=== PATIENT | female | born 1985 | race African-American/Black ===

== ENCOUNTER → 2020-05-19 | Outpatient (REF) | payer OTHER | LOC: M WUC 17:48 | PROVIDERS: ATTEND Nurse Practitioner Family | DX: R30.0 Dysuria (principal) ==

== ENCOUNTER → 2020-08-07 | Outpatient (REF) | payer OTHER ==
[2020-08-07 18:34] LABS: URINE PREG TEST POSITIVE (NEGATIVE)
== END ==
LOC: M LAB REF 18:16
PROVIDERS: ATTEND Physician Assistant Medical
DX: Z32.00 Encounter for pregnancy test, result unknown (principal)

== ENCOUNTER 2020-10-21 14:03 | Emergency (ER) | payer OTHER ==
[~2020-10-21] VITALS: Ht 162.6 cm; Wt 84.2 kg
[2020-10-21] MEDS ORDERED: ZOFR4TAB16 PO (14:16)
[2020-10-21] MEDS ORDERED: COLA100C5 PO (14:16)
[2020-10-21] MEDS ORDERED: ASPI81CH33 PO (14:16)
[2020-10-21] MEDS ORDERED: PREN1TAB11 PO (14:16)
[2020-10-21] MEDS ORDERED: PROM50TA4 PO (14:16)
[2020-10-21] MEDS ORDERED: FOLI400T PO (14:16)
[2020-10-21] MEDS ORDERED: LOVE1INJ SC (14:16)
[2020-10-21] MEDS ORDERED: PYRI100L PO (14:16)
--- OUTSIDE RECORDS SUMMARY | 2020-10-21 15:12 | CCD ---
Author Author [facility] Organization [facility] Address Unknown Phone Unavailable Care Team Providers Care Assistant Portfolio Manager Name Role Phone FRANDY HANNAH Unavailable Unavailable MASTROGIANNISMiller LEON Unavailable Unavailable Reyes, Shayna YARD ASSOCIATE Unavailable Unavailable Reyes, Shayna YARD ASSOCIATE Unavailable Unavailable Reyes, Shayna YARD ASSOCIATE Unavailable Unavailable Reyes, Shayna YARD ASSOCIATE Unavailable Unavailable Reyes, Shayna YARD ASSOCIATE Unavailable Unavailable Reyes, Shayna YARD ASSOCIATE Unavailable Unavailable Reyes, Shayna YARD ASSOCIATE Unavailable Unavailable Reyes, Shayna YARD ASSOCIATE Unavailable Unavailable Reyes, Shayna YARD ASSOCIATE Unavailable Unavailable Reyes, Shayna YARD ASSOCIATE Unavailable Unavailable Reyes, Shayna YARD ASSOCIATE Unavailable Unavailable JAZMIN ESCOBEDO Unavailable Unavailable MINDA GARCIA Unavailable Unavailable Re-disclosure Warning The records that you are about to access may contain information from federally-assisted alcohol or drug abuse programs. If such information is present, then the following federally mandated warning applies: This information has been disclosed to you from records protected by federal confidentiality rules (42 CFR part 2). The federal rules prohibit you from making any further disclosure of this information unless further disclosure is expressly permitted by the written consent of the person to whom it pertains or as otherwise permitted by 42 CFR part 2. A general authorization for the release of medical or other information is NOT sufficient for this purpose. The Federal rules restrict any use of the information to criminally investigate or prosecute any alcohol or drug abuse patient.The records that you are about to access may contain highly sensitive health information, the redisclosure of which is protected by Article 27-F of the [place] State Public Health law. If you continue you may have access to information: Regarding HIV / AIDS; Provided by facilities licensed or operated by the [facility] Office of Mental Health; or Provided by the [facility] Office for People With Developmental Disabilities. If such information is present, then the following [facility] mandated warning applies: This information has been disclosed to you from confidential records which are protected by state law. State law prohibits you from making any further disclosure of this information without the specific written consent of the person to whom it pertains, or as otherwise permitted by law. Any unauthorized further disclosure in violation of state law may result in a fine or senior living sentence or both. A general authorization for the release of medical or other information is NOT sufficient authorization for further disc losure. 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 Outpatient Attender: HANNAH WISEReferrer: DUNCAN GARCIA [id number] 09/27/2020 12:00:00 AM [facility] Outpatient Attender: JAZMIN ESCOBEDOReferrer: DUNCAN GARCIA 09/27/2020 12:00:00 AM [facility] Outpatient Attender: Shayna victor 05/19/2020 04:35:00 PM EDT [facility] Medications Medication Brand Name Start Date Product Form Dose Route Admi nistrative Instructions Pharmacy Instructions Status Indications Reaction Description Data Source(s) Cefixime 400 MG Oral Capsule CEFIXIME 05/19/2020 12:00:00 AM EDT caps ule 1 TAKE 1 CAPSULE BY MOUTH FOR 1 DOSE TAKE 1 CAPSULE BY MOUTH FOR 1 DOSE SOLD: 05/19/2020 [facility] Cefixime 400 MG Oral Capsule [Suprax] Suprax 05/19/2020 12:00:00 AM EDT ORAL completed [facility] ([facility]) Azithromycin 16.7 MG/ML Oral Suspension Azithromycin 05/19/20 20 12:00:00 AM EDT ORAL completed [facility] ([facility]) 500 mg 05/19/2020 12:00:00 AM EDT tablet 2 TAKE 2 TABLETS BY MOUTH NOW TAKE 2 TABLETS BY MOUTH NOW SOLD: 05/19/2020 [facility] Metronidazole 500 MG Oral Tablet Metronidazole 05/19/2020 12:00:00 AM EDT active [facility] ([facility]) Metronidazole 500 MG Oral Tablet METRONIDAZOLE 05/19/2020 12:0 0:00 AM EDT tablet 14 TAKE ONE TABLET BY MOUTH TWICE A DAY FOR 7 DAYS TAKE ONE TABLET BY MOUTH TWICE A DAY FOR 7 DAYS SOLD: 05/19/2020 [employer] Insurance Providers Payer name Policy type / Coverage type Policy ID Covered green party ID Covered green party's relationship to troncoso Policy Tron[place]o Plan Information [facility] [employer] [id number] U [id number] Self [id number] [facility] REG O [id number] P [id number] [facility] UKN HU2 UKN Problems, Conditions, and Diagnoses Code Display Name Description Problem Type Effective Dates Data Source(s) 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 Diagnosis 09/28 09:19:31 AM [facility] D68.61 Antiphospholipid syndrome Antiphospholipid syndrome Di agnosis 09/27/2020 09:49:50 AM [facility] D68.59 Other primary thrombophilia Other primary thrombophili a Diagnosis 09/27/2020 09:49:50 AM [facility] O99.111 Other diseases of the blood and blood-forming organs and certain disorders involving the immune mechanism complicating , first trimester Other diseases of the blood and blood-fo rming organs and certain disorders involving the immune mechanism complicating , first trimester Diagnosis 09/27/2020 09:49:50 AM [facility] Z31.5 Encounter for procreative genetic counsstephen freeman Encounter for procreative genetic counseling Diagnosis 09/27/2020 09:49:50 AM [facility] O09.521 Supervision of elderly multigravida, fir st trimester Supervision of elderly multigravida, first trimester Diagnosis 09/27/2020 09:49:50 AM [facility] Results ID Date Data Source [id number] 10/10/2020 06:08:37 PM [facility] Name Value Range Interpretation Code Description Data Evelyn rce(s) Supporting Document(s) Progress Note [facility] EHCXRz3tRuSNTyTm04/IAVkrBUIji6BaAGyhKVb7TPolIXYtU5SdYAJ8mM4tJQL9VGqYWtFcRiJlRWB7 lbm [file] BXu8XWD3VS5OWOVXP8MOEy== ID Date Data Source [id number] 10/10/2020 06:08:32 PM [facility] Name Value Range Interpretation Code Description Data Evelyn rce(s) Supporting Document(s) Progress Note [facility] YNJCFv0nLkXETdQw65/WQAbgRAFxe1RrLUfmCTm1XRvmZTJfI1UfLWE1zD9dQQY0DXeEZyIhJcDuLEA8 lbm [file] ICAgICAgICAgICAgICAgICAgICAgICAgICAgICAgIC AgICAgICAgICAgICAgICAgICAgICAgICAgICAgICAgICAgICAgICAgICAgICAgICAgDQogICAgICAgIC AgICAgICAgICAgICAgICAgICAgICAgICAgICAgICAgICAgICAgICAgICAgICAgICAgICAgICAgICAgIC AgICAgICAgICAgICAgICAgICAgICAgICAgICAgICAg DQogICAgICAgICAgICAgICAgICAgICAgICAgICAgICAgICAgICAgICAgICAgICAgICAgICAgICAgICAg ICAgICAgICAgICAgICAgICAgICAgICAgICAgICAgICAgICAgICAgICAgDQogICAgICAgICAgICAgICAg ICAgICAgICAgICAgICAgICAgICAgICAgICAgICAgIC AgICAgICAgICAgICAgICAgICAgICAgICAgICAgICAgICAgICAgICAgICAgICAgICAgICAgDQogICAgIC AgICAgICAgICAgICAgICAgICAgICAgICAgICAgICAgICAgICAgICAgICAgICAgICAgICAgICAgICAgIC AgICAgICAgICAgICAgICAgICAgICAgICAgICAgICAg ICAgDQogICAgICAgICAgICAgICAgICAgICAgICAgICAgICAgICAgICAgICAgICAgICAgICAgICAgICAg ICAgICAgICAgICAgICAgICAgICAgICAgICAgICAgICAgICAgICAgICAgICAgDQogICAgICAgICAgICAg ICAgICAgICAgICAgICAgICAgICAgICAgICAgICAgIC AgICAgICAgICAgICAgICAgICAgICAgICAgICAgICAgICAgICAgICAgICAgICAgICAgICAgICAgDQogIC AgICAgICAgICAgICAgICAgICAgICAgICAgICAgICAgICAgICAgICAgICAgICAgICAgICAgICAgICAgIC AgICAgICAgICAgICAgICAgICAgICAgICAgICAgICAg ICAgICAgDQogICAgICAgICAgICAgICAgICAgICAgICAgICAgICAgICAgICAgICAgICAgICAgICAgICAg ICAgICAgICAgICAgICAgICAgICAgICAgICAgICAgICAgICAgICAgICAgICAgICAgDQogICAgICAgICAg ICAgICAgICAgICAgICAgICAgICAgICAgICAgICAgIC AgICAgICAgICAgICAgICAgICAgICAgICAgICAgICAgICAgICAgICAgICAgICAgICAgICAgICAgICAgDQ a2R9oqSPBlHJUxRA4sEKl3Sk8+AIoGSdBoZJT0aaEnkY7YBX9rr7JnRWvhYQUcb1GwDEe7AA6HZZVoOD sdBL6WKXsmds9FNFTeBXUpdCOQp1buHyGnKUH9CPEl UiavVD2SBQLtL5ezcdJlRBHsCUKBTPxmZSNIWRbsTCTUAF2CLnIjW7KyxH65NBIDDs0+DQplbmRvYmoN PkJ2RHWpf8YoSCm4HF2SKZWtCcseu4ObYixpBDJKMWewOP9QTXP2ZGC0HVTrWc2IFFFcG704rkXyWE9B Dq8CEsXbWK0byj3WMjvyEZXnHtwUBvv7QUwkYY9RhO PqRTcJfb3xewTontNNb2ZzdnYeaKSOyG3ck0N4HCj0okL9xYA3SYZ5PSIhKG8nZLJmWJPfAlJxNITJZR 1DNHBkWMQwbOXuHHKmXGOOSN5RGLjrXDN8EKUeciTczKKuFImrPU6LYYXlpgIfOiGyDDXCMUm+Pg0KZW 8yx4TfJUkpREOfCV7xrn0MPQxQDhIbX1S8nFQyQ8E4 DAhuXc1NXDZqKDHxUqFoMKNJOUdnSQ8VWG0pnrX7HY1HpAJnSOQwBMLqgEMrSKc2Z38ocEGrPYghVT0Q ICA+Denton+Kg7VGFKhIFNgWRFfNeSgTMCOSxSqD7EzJ0DFo6SqE0YdQZ03aYlqmsFySDmbIU9DQR6zKFZw DDEJJD2DbZVeqG3nauHdFcSmAHTRNgOwI20rlBLfWA RiVIZ7ZRHlUw8OVPUnL2AbipTtaPoujrRmPCPfRNQRJI5YIFbzbyYepMYjjKmvOH12qNvpEW2YNc7ALi JyGH1uaj2CeDScFr6WALFmPG9NXRIcSOXvORJuAMX9SUVbFpVwLXntWFDxRKZjSHT7MEJmYABrZO2STt MlDZDvSix6GnfiVBMuVTGvfq6PLXZlZIAzSUM1UrDj IKVqYJNtWJjuCHBnADUoKLF1IXVdMLQtPL2UTwFvJRWgTYN5AzUmFNQqQOQnry7IYUPkQYKzKFj7DbHo ACHtBVNqEBhiIJBnCMP3LdEfKOBlVNWpGK6WMkGxZBDmFEd4PbStEUVmXPQbuv3AWKAnHIKbGgJoVkSa SDLqLZKqEPsjKEAlCSFlXUVkYBZoPNXeVC2JAfKaBX EiWHX1YYMuLZFaPYQwkt4PKWXhPNHyYXN6SFBbNTCvNSMyFCseLZOrGJC8DxlcCLBxYLLnQR0CQbMuHR VgSYW9YFDaWYMbSDUwpx7IUMRvJNBsCKa3QzHmSSUkVCJrKItuBGXaFMQ5MSUjLSXjPQVySK8SYfYgKE QsUxf1JKDjIBFhNNDhjy3CGXZiGXQoQuokCZDcPTPs QGJaWRtzYCVjAMN6EHHnPWDrCNCeDU1VWqZjSQUwBbofCIIrFKNySMPpuu6CQDDzRLYtQKB3HdJqKUMd QKMsTAgiATYyEJL6UeShHIToZRPqTC4SCaVjTPWjAbe6VicaWGJdOCVvfa4SVXAhGYNjPXtnMxJkCZXi RJQtRWixFFQsXFXbPMLbLQHhHZNpTR6JOjGhXETuDz V4PrGiROYtIQWoeb6UNFKvKHVvPYH5VUUhZEJbZHYvEYgtHIBvGFTsYxikBFUbGLUfPL4XYvAvMYkbAX NIWgy0OUghD7w3TQBkKF8XS7Cnw3QgJelhQNNQMSvkWN2oczFlPYFxEy7KH2pQOjj1MeKyUDB5EVTfUI S2Ybm4XDQ9CPApNLT1TDS6ZnFfUF7zHQWuGuWxAJGz WVKuQQtuGaRnVMgfIlYlEsbnUpg0WKA0GzTsHD2ZZw3CWmU8EHL8uMHkOr3UNaHwSwFXZrAbTC0RMZt= ID Date Data Source [id number] 09/29/2020 07:59:57 AM [facility] Name Value Range Interpretation Code Description Data Evelyn rce(s) Supporting Document(s) Progress Note [facility] HZOKFv5eHeCBHvNy88/UWCviPYVsw2OzFNjzHVc6QYujVRCjG2XrONS4jS8xITG8NRfNOkVnQvPmUUP1 lbm [file] K2YTV0rWTvTo6NWLwlXHaMFzKrQD5FZVd= ID Date Data Source [id number] 09/27/2020 02:03:28 PM [facility] Name Value Range Interpretation Code Description Data Evelyn rce(s) Supporting Document(s) Leukocytes [#/volume] in Blood by Automated count 6.9 10*3/uL 4-10 [facility] Erythrocytes [#/volume] in Blood by Automated count 4.12 10*6/uL 4.1- 5.3 [facility] Hemoglobin [Mass/volume] in Blood 11.8 g/dL 11.5-15.5 [facility] Hematocrit [Volume Fraction] of Blood by Automated count 36.1 % 3 6-45 [facility] Erythrocyte mean corpuscular volume [Entitic volume] by Auto mated count 87.6 fL 80-96 [facility] Erythrocyte mean corpuscular hemoglobin [Entitic mass] by Automated count 28.6 pg 27-33 [facility] Erythrocyte mean corpuscular hemoglobin concentration [Mass/volume] by Automated count 32.7 g/dL 32.0-36.0 [facility] Erythrocyte distribution width [Ratio] by Automated count 13.6 % 11.5-14.5 [facility] Platelets [#/volume] in Blood by Automated count 225 10*3/uL 150-400 [facility] Differential cell count method - Blood [facility] Neutrophils/100 leukocytes in Blood by Automated count 60 % [facility] Lymphocytes/100 leukocytes in Blood by Automated count 28 % [facility] Monocytes/100 leukocytes in Blood by Automated count 9 % [facility] Eosinophils/100 leukocytes in Blood by Automated count 2 % [facility] Basophils/100 leukocytes in Blood by Automated count 1 % [facility] Neutrophils [#/volume] in Blood by Automated count 4.19 10*3/uL 1.8-[address] [facility] Lymphocytes [#/volume] in Blood by Automated count 1.89 10*3/uL 1.2-[address] [facility] Monocytes [#/volume] in Blood by Automated count 0.62 10*3/uL 0-0.8 [facility] Eosinophils [#/volume] in Blood by Automated count 0.12 10*3/uL 0-0.5 [facility] Basophils [#/volume] in Blood by Automated count 0.04 10*3/uL 0-0.2 [facility] Nucleated erythrocytes/100 leukocytes [Ratio] in Blood by Automated count 0 /100{WBCs} 0-0 [facility] ID Date Data Source [id number] 09/27/2020 02:16:49 PM [facility] Value Range Interpretation Code Description Data Evelyn rce(s) Supporting Document(s) aPTT in Platelet poor plasma by Coagulation assay 28.1 s 24.0-33. 0 [facility] ID Date Data Source [id number] 09/27/2020 02:18:06 PM [facility] Value Range Interpretation Code Description Data Evelyn rce(s) Supporting Document(s) Erythrocyte sedimentation rate 34 mm/hr <[address] [facility] ID Date Data Source [id number] 09/27/2020 02:31:49 PM [facility] Value Range Interpretation Code Description Data Evelyn rce(s) Supporting Document(s) Complement C3 [Mass/volume] in Serum or Plasma 112 mg/dL 90-180 [facility] ID Date Data Source [id number] 09/27/2020 02:31:49 PM [facility] Value Range Interpretation Code Description Data Evelyn rce(s) Supporting Document(s) Complement C4 [Mass/volume] in Serum or Plasma 26 mg/dL 10-40 [facility] ID Date Data Source [id number] 09/27/2020 02:31:49 PM [facility] Value Range Interpretation Code Description Data Evelyn rce(s) Supporting Document(s) Thyrotropin [Units/volume] in Serum or Plasma 1.080 u[IU]/mL 0.270-4. 200 [facility] ID Date Data Source [id number] 09/28/2020 10:59:36 AM [facility] Value Range Interpretation Code Description Data Evelyn rce(s) Supporting Document(s) Hemoglobin A2 [Moles/volume] in Blood by Chromatography column [facility] Hemoglobin A2/Hemoglobin.total in Blood by Chromatography column 2.8 % 1.7-3.5 [facility] Hemoglobin F/Hemoglobin.total in Blood 1.3 % <1.[address] [facility] ID Date Data Source [id number] 09/29/2020 10:33:45 AM [facility] Value Range Interpretation Code Description Data Evelyn rce(s) Supporting Document(s) Lupus anticoagulant neutralization plate let [Time] in Platelet poor plasma by Coagulation assay 0.4 sec <8.0 [facility] ID Date Data Source [id number] 09/29/2020 11:50:47 AM [facility] Value Range Interpretation Code Description Data Evelyn rce(s) Supporting Document(s) dRVVT/dRVVT W excess phospholipid (screen to confirm ratio) 0.97 Ra kyle <1.20 [facility] ID Date Data Source [id number] 09/28/2020 11:36:29 AM [facility] Value Range Interpretation Code Description Data Evelyn rce(s) Supporting Document(s) Cardiolipin IgM Ab [Interpretation] in Serum 5.1 U/mL <20.0 [facility] Negative results do not rule out Antipho spholipid syndrome. Additional APL testing should be considered. Cardiolipin IgG Ab [Interpretation] in Serum 2.6 U/mL <20.0 [facility] Negative results do not rule out Antipho spholipid syndrome. Additional APL testing should be considered. ID Date Data Source [id number] 09/28/2020 11:36:29 AM [facility] Value Range Interpretation Code Description Data Evelyn rce(s) Supporting Document(s) Beta 2 glycoprotein 1 IgM Ab [Units/volume] in Serum <20.0 [facility] Negative results do not rule out Antipho spholipid syndrome. Other APL testing should be considered. Beta 2 glycoprotein 1 IgG Ab [Units/volume] in Serum <20.0 [facility] Negative results do not rule out Antipho spholipid syndrome. Other APL testing should be considered. ID Date Data Source [id number] 09/29/2020 11:08:27 AM [facility] Value Range Interpretation Code Description Data Evelyn rce(s) Supporting Document(s) Sjogrens syndrome-A extractable nuclear Ab [Units/volume] in Serum by Immunofluorescence 8 [AU]/mL [address] [place] [address] Sjogrens syndrome-B extractable nuclear Ab [Units/volume] in Serum by Immunofluorescence 8 [AU]/mL [address] [place] [address] Joyce extractable nuclear Ab [Units/volume] in Serum b y Immunofluorescence 13 [AU]/mL [address] [place] [address] Ribonucleoprotein extractable nuclear Ab [Units/volume] in Serum by Immunofluorescence 29 U/ML [address] [place] [address] SCL-70 extractable nuclear Ab [Units/volume] in Serum 24 [AU]/mL [address] [place] [address] Nirmala-1 extractable nuclear Ab [Units/volume] in Serum by Immunofluorescence 7 [AU]/mL [address] [place] [address] DNA double strand Ab [Units/volume] in Serum by Immunofluore scence 12 [IU]/mL [address] [place] [address] Centromere Ab [Units/volume] in Serum 16 [AU]/mL [address] [place] [address] Histone IgG Ab [Units/volume] in Serum 17 [AU]/mL [address] [place] [address] ID Date Data Source [id number] 09/28/2020 01:14:51 PM [facility] Name Value Range Interpretation Code Description Data Evelyn rce(s) Supporting Document(s) DNA double strand Ab [Units/volume] in Serum by Immunofluorescence [address] [place] [address] ID Date Data Source [id number] 09/27/2020 01:59:54 PM [facility] Name Value Range Interpretation Code Description Data Evelyn rce(s) Supporting Document(s) Test Name [facility] ospital Performing Lab [facility] Test Result [facility] ID Date Data Source [id number] 09/27/2020 10:14:26 AM [facility] Name Value Range Interpretation Code Description Data Evelyn rce(s) Supporting Document(s) Color of Urine [facility] Clarity of Urine [facility] Glucose [Mass/volume] in Urine by Test strip Negative [facility] Bilirubin.total [Presence] in Urine by Test strip Negative [facility] Ketones [Mass/volume] in Urine by Test strip Negative [facility] Specific gravity of Urine by Test strip 1.020 1.005-1.025 [facility] Hemoglobin [Presence] in Urine by Test strip Negative [facility] pH of Urine by Test strip 6.0 5.0-8.0 [facility] Protein [Mass/volume] in Urine by Test strip Negative [facility] Urobilinogen [Units/volume] in Urine by Test strip 0.2 {Ehrlich_U}/ dL 0.2-1.0 [facility] Nitrite [Presence] in Urine by Test strip Negative [facility] Leukocyte esterase [Presence] in Urine by Test strip Negat ernie [facility] ID Date Data Source [id number] 07/07/2020 12:00:00 AM EDT [facility] Jazmin Mcdowell Np Patient Name: AMADO [id number] [facility] Date of :1985[facility] [place] [address] Date of Exam: 07/07/2020#: Fax: [phone] EXAM: MAMMO DIAG INC CAD BILATERALCLINICAL INFORMATION: Diagnostic. Bilateral nipple discharge.There are no prior mammograms for comparison.The patient states that a clinical breast exam was not performed.Based on the personal and family history information your patient suppliedat the time of imaging,her lifetime risk of breast cancer estimated by theTyrer-Cuzick model is 25.8%. If anything changes in the personal and/orfamily history, this percentage could increase or decrease. Currently, theNational Comprehensive Cancer Network and [place] Cancer Society recommendadjunctive breast MRI screening starting at age 30 for women with a >20-25%lifetime risk of developing breast cancer.Digital screening (2D) mammography was performed bilaterally. Additionally,breast tomosynthesis (3D) mammography was performed bilaterally in the CCand MLO projections.Today's examination is the initial screening examination.The breasts are symmetric in size and shape. Dense heterogeneousfibroglandular elements are seen bilaterally to such a degree that thesensitivity of the mammogram in detecting cancer is decreased. There are nomasses. There is no internal architectural distortion. There are nosuspicious microcalcific clusters. Skin thickening or nipple retraction isnot present.The Volpara volumetric breast density category is C, the breasts areheterogeneously dense which may obscure small masses.IMPRESSION:BI-RADS Category 2 - Benign Finding(s). There is no evidence of malignantalteration of the breasts. Depending on the type and nature of thebilateral nipple discharge, ductography may be in order. Breast MRI may bein order. Followup clinically is recommended.This mammogram was read with the assistance of [employer], an FDAapproved computer aided detection system for mammography.Negative x-ray reports should not delay surgical consultation if a dominantor clinically suspicious mass is present.Not all breast cancers can be identified by mammography. Therefore, werecommend that you continue to perform regular breast self-examination andphysical examination and then promptly contact your physician of anyconcerns or changes.Adenosis and dense breasts may obscure an underlying neoplasm.NAT Drake/Mt you for referring TJ BOLAND to our office. Electronically Signed - MALCOM VILLAR DO 07/07/20 16:08 Name Value Range Interpretation Code Description Data Evelyn rce(s) Supporting Document(s) ID Date Data Source [id number] 05/19/2020 05:49:00 PM EDT [facility] ([facility]) Name Value Range Interpretation Code Description Data Evelyn rce(s) Supporting Document(s) Bacteria identified in Urine by Culture [facility] FULL REPORT IN LAB NOTES (eCW and [facility] ). NO GROWTH Procedure Social History Code Duration Value Status Description Data Source(s ) Smoking 05/19/2020 12:00:00 AM EDT Patient has never smoked co mpleted Patient has never smoked [facility] ([facility]) Vital Signs ID Date Data Source UNK Name Value Range Interpretation Code Description Data Source(s) Body mass index (BMI) [Ratio] 28.0 kg/m2 28.0 k g/m2 [facility]) Body height 64 [in_i] 64 [in_i] [facility] ([facility]) 5'4" Body weight 163.00 [lb_av] 163.00 [lb_av] [facility] ([facility]) Body temperature 99.1 [degF] 99.1 [degF] [facility] ([facility]) Oxygen saturation in Arterial blood by Pulse oximetry 99 % 99 % [facility] ([facility]) Respiratory rate 12 /min 12 /min [facility] ( [facility]) Heart rate 94 /min 94 /min [facility] [place] ([facility], [facility]) Diastolic blood pressure 78 mm[Hg] 78 mm[Hg] [facility] ([facility], [facility]) Systolic blood pressure 117 mm[Hg] 117 mm[Hg] [facility] [facility]) ID Date Data Source [id number] 10/10/2020 06:08:37 PM [facility] Name Value Range Interpretation Code Description Data Source(s) Body height Measured 64 in 64 in [facility] WEIGHT RECORDED 166.2 lb 166.2 lb [facility]
[2020-10-21 15:31] LABS: BASO % 0.4 % (0.0-1.0); EOS # 0.2 10^3/uL (0.0-0.5); EOS % 3.5 % (0.0-3.0); HEMOGLOBIN 11.1 g/dl (12.0-15.5); LYMPH % 29.2 % (24.0-44.0); MEAN CORPUSCULAR HGB CONC 31.7 g/dl (32.0-36.5); MEAN CORPUSCULAR VOLUME 88.4 fl (80.0-96.0); MONO # 0.7 10^3/uL (0.0-0.8); MONO % 9.8 % (0.0-5.0); NEUTROPHILS # 3.9 10^3/uL (1.5-8.5); NEUTROPHILS % 56.7 % (36.0-66.0); PLATELET COUNT, AUTOMATED 170 10^3/uL (150-450); RED BLOOD COUNT 3.96 10^6/uL (4.00-5.40); WHITE BLOOD COUNT 6.9 10^3/uL (4.0-10.0)
[2020-10-21 15:33] LABS: APPEARANCE, URINE CLEAR (CLEAR); BACTERIA, URINE AUTO NEGATIVE (NEGATIVE); BILIRUBIN, URINE AUTO NEGATIVE (NEGATIVE); BLOOD, URINE BLOOD NEGATIVE (NEGATIVE); COLOR, URINE YELLOW (YELLOW); GLUCOSE, URINE (UA) AUTO NEGATIVE (NEGATIVE); KETONE, URINE AUTO NEGATIVE (NEGATIVE); LEUKOCYTE ESTERASE, URINE AUTO NEGATIVE (NEGATIVE); NITRITE, URINE AUTO NEGATIVE (NEGATIVE); PROTEIN, URINE AUTO NEGATIVE (NEGATIVE); RBC, URINE AUTO 0 /HPF (0-3); SPECIFIC GRAVITY URINE AUTO 1.013 (1.002-1.035); SQUAMOUS EPITHELIAL CELL UR AU 0 /HPF (0-6); UROBILINOGEN, URINE AUTO 0.2 mg/dL (0.0-2.0); WBC, URINE AUTO 0 /HPF (0-3)
--- NOTE | 2020-10-21 16:07 | REP ---
INDICATION: cramping not feeling baby move. COMPARISON: None. TECHNIQUE: Transabdominal and transvaginal scanning or performed. FINDINGS: Scanning through the gravid uterus demonstrates a viable single intrauterine gestation in transverse lie. motion is observed and heart rate is recorded at 144 beats per minute. A posterior placenta is seen, grade 0, with evidence of partial placenta previa. Closed cervical length is measured at 5.4 cm transabdominally. No extrauterine abnormality is observed. Amniotic fluid is subjectively normal. The following anatomic structures are identified and felt to be unremarkable: cranium and intracranial anatomy, left-sided stomach, right and left kidney, urinary bladder.. Biometry chart: BPD 3.1 cm, 15 weeks 5 days Head circumference 11.9 cm, 15 weeks 6 days Abdominal circumference 9.4 cm, 15 weeks 4 days Femur length 1.9 cm, 15 weeks 5 days Humeral length 2.0 cm, 16 weeks 0 days HC AC ratio normal 1.27 Cephalic index normal 0.70 Estimated weight 131 g, 0 lb 4 oz, 32nd percentile for 15 weeks 5 days IMPRESSION: Viable single intrauterine gestation at 15 weeks 5 days by today's composite sonographic criteria. OMAR by today's sonography April 09, 2021. anatomic survey is incomplete due to early gestational age.. Partial placenta previa. Recommend follow-up. <Electronically signed by Jamal Malloy > 10/21/20 [id number]
[2020-10-21 17:21] VITALS: BP 118/71
[2020-10-21 18:29] LABS: CHLAMYDIA DNA AMPLIFICATION NEGATIVE (NEGATIVE); GC DNA AMPLIFICATION NEGATIVE (NEGATIVE)
== END 2020-10-21 17:23 | disposition home or self-care (01) ==
LOC: M ED 14:03
DX: O44.22 Partial placenta previa NOS or without hemorrhage, second trimester (principal); Z20.2 Contact with and (suspected) exposure to infections with a predominantly sexual mode of transmission; O99.612 Diseases of the digestive system complicating pregnancy, second trimester; K21.9 Gastro-esophageal reflux disease without esophagitis; Z3A.15 15 weeks gestation of pregnancy; Z79.899 Other long term (current) drug therapy; Z79.82 Long term (current) use of aspirin

== ENCOUNTER 2020-11-30 01:15 | Outpatient (CLI) | payer OTHER ==
[~2020-11-30 01:15] MED LIST: ASPI81CH33 PO; COLA100C5 PO; FOLI400T13 PO; LOVE1INJ SC; PREN1TAB11 PO; PROM50TA4 PO; PYRI100L PO; ZOFR4TAB16 PO
[2020-11-30] MEDS ORDERED: hydrOXYzine 50 MG TAB PO ONE (02:35)
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
== END 2020-11-30 03:42 | disposition home or self-care (01) ==
LOC: M LDO 01:15
PROVIDERS: ATTEND Obstetrics & Gynecology
DX: O9A.212 Injury, poisoning and certain other consequences of external causes complicating pregnancy, second trimester (principal); O99.342 Other mental disorders complicating pregnancy, second trimester; F41.9 Anxiety disorder, unspecified; Z3A.21 21 weeks gestation of pregnancy

== ENCOUNTER 2020-11-30 15:59 | Emergency (ER) | payer OTHER ==
[~2020-11-30] VITALS: Ht 162.6 cm; Wt 77.3 kg
[2020-11-30 17:28] LABS: HEMATOCRIT 36.7 % (36.0-47.0); HEMOGLOBIN 11.7 g/dl (12.0-15.5); MEAN CORPUSCULAR HGB CONC 31.9 g/dl (32.0-36.5); MEAN CORPUSCULAR VOLUME 90.8 fl (80.0-96.0); PLATELET COUNT, AUTOMATED 177 10^3/uL (150-450); RED BLOOD COUNT 4.04 10^6/uL (4.00-5.40); WHITE BLOOD COUNT 10.2 10^3/uL (4.0-10.0)
[2020-11-30 20:01] LABS: ACETAMINOPHEN LEVEL < 2.0 UG/ML (10.0-30.0); ALBUMIN 3.4 GM/DL (3.2-5.2); ALT/SGPT 14 U/L (12-78); BILIRUBIN,DIRECT < 0.1 MG/DL (0.0-0.2); BILIRUBIN,TOTAL 0.1 MG/DL (0.2-1.0); BLOOD UREA NITROGEN 8 MG/DL (7-18); CALCIUM LEVEL 8.7 MG/DL (8.5-10.1); CARBON DIOXIDE LEVEL 25 MEQ/L (21-32); CHLORIDE LEVEL 109 MEQ/L (98-107); CREATININE FOR GFR 0.67 MG/DL (0.55-1.30); ETHYL ALCOHOL (ETHANOL) < 0.003 % (0.000-0.010); GLOMERULAR FILTRATION RATE > 60.0 (>60); GLUCOSE, FASTING 105 MG/DL (70-100); POTASSIUM SERUM 3.3 MEQ/L (3.5-5.1); SALICYLATE LEVEL < 1.7 MG/DL (5.0-30.0); SODIUM LEVEL 139 MEQ/L (136-145); THYROID STIMULATING HORMONE 0.999 uIU/ML (0.358-3.740); TOTAL PROTEIN 7.4 GM/DL (6.4-8.2)
[2020-11-30 20:14] LABS: AMPHETAMINES LEVEL URINE NEGATIVE (NEGATIVE); BARBITURATES URINE NEGATIVE (NEGATIVE); BENZODIAZEPINES URINE NEGATIVE (NEGATIVE); CANNABINOIDS URINE NEGATIVE (NEGATIVE); COCAINE METABOLITE URINE NEGATIVE (NEGATIVE); METHADONE URINE NEGATIVE (NEGATIVE); OPIATES URINE NEGATIVE (NEGATIVE); PHENCYCLIDINE URINE NEGATIVE (NEGATIVE)
[2020-11-30 20:40] VITALS: BP 115/71
== END 2020-11-30 20:42 | disposition home or self-care (01) ==
LOC: M ED 15:59
DX: O9A.212 Injury, poisoning and certain other consequences of external causes complicating pregnancy, second trimester (principal); O99.342 Other mental disorders complicating pregnancy, second trimester; F41.9 Anxiety disorder, unspecified; Z3A.21 21 weeks gestation of pregnancy; K21.9 Gastro-esophageal reflux disease without esophagitis; Z79.899 Other long term (current) drug therapy; Z79.82 Long term (current) use of aspirin; O99.611 Diseases of the digestive system complicating pregnancy, first trimester

== ENCOUNTER 2021-03-10 15:59 | Outpatient (CLI) | payer OTHER ==
[~2021-03-10] VITALS: Ht 162.6 cm; Wt 88.5 kg
[2021-03-10 16:33] VITALS: BP 101/56
--- NOTE | 2021-03-10 17:00 | IPNPDOC ---
Obstetrical Progress Note Date of Service Mar 10, 2021 Subjective Ms. Roa is a 35yo presenting for a labor check. 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 She reports mild contraction like pain x1wk but worsening over the past hour. She denied VB, LOF, decreased FM. She denied n/.v/d, cp, sob, marks, visual changes, f/c, urinary sx, vaginal dc. Objective Vital Signs Date Time Temp Pulse Resp B/P (MAP) Pulse Ox O2 Delivery O2 Flow Rate FiO2 03/10/21 16:33 98.3 76 18 101/56 (71) Assessment Heart Rate (FHR): 130 Variability: Moderate Accelerations: Positive Decelerations: None Heart Rate Tracing: Category I Tocometer Contractions: Yes Frequency: irregular Sterile Vaginal Examination Dilation: None Cervical Consistency: Firm Cervical Position: Middle Postion/Presentation: Cephalic presentation (by US) Assessment and Plan Additional Comments Ms. Roa is a 35yo presenting for a labor check. 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 CAT I NST reactive, contractions distant on toco. VS normal. Otherwise no symptoms. SVE C/T/H. TAUS cephalic, MVP 3.6cm., +FM. 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 With a closed cervix PTD is unlikely but I explained that I cannot fully rule out labor with one exam. Recommend patient return immediately if she have worsening contractions. Educated on hydration. Educated on routine OB return precautions. DUNCAN GARCIA DO Mar 10, 2021 17:00
--- NOTE | 2021-03-10 17:04 | IPNPDOC ---
Text Note Date of Service The patient was seen on 03/10/21. NOTE Ms. Roa was seen on 03/10/21 at [facility] and should be excused from work on 03/10/21 and 03/11/21. Jamie Garcia DO, [facility], , [facility] [place] PAN VS,Mauricio, I+O VS, Mauricio, I+O Vital Signs Date Time Temp Pulse Resp B/P (MAP) Pulse Ox O2 Delivery O2 Flow Rate FiO2 03/10/21 16:33 98.3 76 18 101/56 (71) JAMIE GARCIA DO Mar 10, 2021 17:04
== END 2021-03-10 16:50 | disposition home or self-care (01) ==
LOC: M LDO 15:59
PROVIDERS: ATTEND Registered Nurse
DX: O47.03 False labor before 37 completed weeks of gestation, third trimester (principal); Z3A.34 34 weeks gestation of pregnancy; Z91.011 Allergy to milk products
CPT/HCPCS: 59025; 76815; G0378; G0463

== ENCOUNTER 2021-04-08 04:22 | Outpatient (CLI) | payer OTHER ==
[~2021-04-08] VITALS: Ht 162.6 cm; Wt 88.8 kg
[2021-04-08 04:40] VITALS: BP 114/63
--- NOTE | 2021-04-08 06:21 | IPNPDOC ---
Subjective Date Seen The patient was seen on 04/08/21. Subjective Chief Complaint/HPI 35yo at 38w5d by LMP c/w 8wk US with OMAR 17 April presents to triage with complaint of vaginal discharge, spotting and contractions. Pt states she used the bathroom last night and reports a yellow/brown discharge as well as some mucus with some blood in it. She also reports contractions that have become more regular overnight occurring every 5 min. She states that she started metrogel after her appointment yesterday for management of a BV infection. She is otherwise without complaint and denies LOF or decreased movement. General: Reports: Normal Appetite; Denies: Chills, Night Sweats, Fatigue, Malaise Constitutional: Denies: Chills, Fever, Night Sweats Pulmonary: Denies: Dyspnea, Cough Cardiovascular: Denies: Chest Pain, Palpitations, Orthopnea, Paroxysmal Noc. Dyspnea, Lt Headedness Musculoskeletal: Denies: Neck Pain, Back Pain, Joint Pain, Muscle Pain, Spasms Psych: Reports: Mood Normal; Denies: Depression, Memory Issues Objective Physical Examination General Exam: Positive: Alert, No Acute Distress Chest Exam: Positive: Normal air movement Heart Exam: Positive: Rate Normal Female Exam: Positive: Nl Ext Genitalia, Discharge (moderate amount of clumpy, brown discharge, likely from metrogel. Did not collect wet prep/SANDRA due to eval completed in clinic yesterday and use of metrogel. Pooling and nitrizine negative. 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 No bleeding and no pooling/neg nitrizine. SVE 1/T/H and TAUS performed with cephalic and subjectively normal fluid. Discussed with patient that discharge is likely due to recent use of metrogel, and that brown discharge is a sign of old blood likely from vaginal irritation (BV) vs. early cervical change/loss of mucus pl ug. FHT in 140's with mod variability, +accels, questionable decel at 0450. Pt continued on monitor x1 hr, overall reassuring and pt states she would like to go home. Strict return precautions given. Pt has not yet scheduled IOL, however per MFM note in chart, plan is for IOL at 39wks - has appt on with Dr. Yousif. Encouraged patient to call or return if she has worsening contractions (declines 2hr recheck this AM), LOF, bright red vaginal bleeding or decreased movement. VS, I&O, 24H, Fishbone Vital Signs/I&O Vital Signs Date Time Temp Pulse Resp B/P (MAP) Pulse Ox O2 Delivery O2 Flow Rate FiO2 04/08/21 04:40 97.6 77 18 114/63 (80) KENNY SALOMON M.D. Apr 08, 2021 06:20
== END 2021-04-08 05:50 | disposition home or self-care (01) ==
LOC: M LDO 04:22
PROVIDERS: ATTEND Obstetrics & Gynecology
DX: O26.893 Other specified pregnancy related conditions, third trimester (principal); Z3A.38 38 weeks gestation of pregnancy; N89.8 Other specified noninflammatory disorders of vagina; O09.513 Supervision of elderly primigravida, third trimester; Z86.718 Personal history of other venous thrombosis and embolism; N85.6 Intrauterine synechiae; Z87.59 Personal history of other complications of pregnancy, childbirth and the puerperium; Z91.011 Allergy to milk products
CPT/HCPCS: 59025; G0378; G0463

== ENCOUNTER 2021-04-09 07:31 | Inpatient (IN) | payer OTHER ==
[2021-04-09] VITALS (32 sets, daily range): BP systolic 83–153; BP diastolic 46–85
[~2021-04-09] VITALS: Ht 162.6 cm; Wt 88.5 kg
[2021-04-09] MEDS ORDERED: LIDOCAINE 1% MDV 20ML VIAL INFIL PRN (09:15)
[2021-04-09] MEDS ORDERED: OXYTOCIN DRIP 30 UNITS in IV 1 EA IV PRN (09:15)
[2021-04-09] MEDS ORDERED: LR 1,000 ML IV SCH ×2 (09:15→11:10)
--- NOTE | 2021-04-09 10:10 | HPEPDOC ---
Obstetrical History & Physical General Date of Admission Apr 09, 2021 at 09:14 History of Present Illness Ms. Roa is a 35yo at 38+6 presenting in early labor. She endorsed r egular painful contractions. She denied VB, LOF, decreased FM. She denied n/v/d, cp, sob, marks, visual changes, f/c, urinary sx. Antepartum Course Pre- weight (lbs.): 163 Admission Weight (lbs.): 197 Change in Weight (lbs.): 34 Past Medical History Past Obstetrical History : Past Obstetrical History: Multigravida (G1 EAB medical. G2 stillbirth 20wk. G3 SAB 6wk expectant. G4 stillbirth 14wk D+C. G5 SAB 6wk expectant. G6 SAB 7wk expectant. G7 blighted ovum D+C. G8 SAB 6wk expectant. G9 2018 6#15 IOL 39wk for RPL. 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 APAS (+lupus anticoagulant), RPL and history of IUFD x2, history of DVT, on lovenox (has not taken in 1wk) 2. balanced translocation CH 3. overweight, excessive weight gain 4. history of baby with FGR 5. asherman's treated hysteroscopically prior to conception 6. hepatitis B non-immune 7. anxiety/depression with severe marital discord (concerns for safety, police involved) 8. 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 anemia, last H/H 10. advanced maternal age 11. absent nasal bone (normal cfDNA, although FF only 6%), prior child with this as well Surgical History: Other (D+C x2, resection of paroted MIST (benign) tumor, hysteroscopic ashermans resection) Social History * Smoker: non-smoker Alcohol: Denies Imunizations Tdap status: current Influenza Status: needs Allergies Uncoded Allergies: lactose inolerant (Allergy, Mild, throw up and tongue itches, 03/10/21) Medications Scheduled Aspirin (Aspirin) 81 Mg Tab.chew, 1 TAB PO DAILY for pain Docusate Sodium (Colace) 100 Mg Capsule, 100 MG PO DAILY Folic Acid (Folic Acid) 0.4 Mg Tablet, 1 TAB PO DAILY Ondansetron HCl (Zofran) 4 Mg Tablet, 4 MG PO TID Vit No.124/Iron/Folic ( Vitamin Tablet) 1 Each Tablet, 1 TAB PO DAILY Promethazine Hcl (Promethazine HCl) 50 Mg Tablet, 50 MG PO BID Miscellaneous Medications Enoxaparin Sodium (Lovenox) 40 Mg/0.4 Ml Syringe, 40 MG SC Pyridoxine HCl (Vitamin B6) (Vitamin B6) 100 Mg/2.5 Ml Liquid, 100 MG PO Physical Examination Physical Examination GENERAL: Alert and oriented times three. BREAST: . ABDOMEN: Gravid and non-tender to touch. FETUS: Is vertex (VTX) by sterile vaginal examination (SVE), fetus is vertex (VTX) by US HEART RATE: Regular rate and rhythm. LUNGS: Clear to auscultation (CTA). EXTREMITIES: No edema. No clonus. Laboratory Data 24H LABS Laboratory Tests 2 04/09/21 09:17: Serology Scanned Report Hepatitis B Testing Pertinent Laboratoy Data Blood Type: O+ RBC Antibody Screen: Negative HIV: Negative Hepatitis B: Negative Rapid Plasma Reagin: Nonreactive Rubella: Immune Varicella: Immune Chlamydia/Gonorrhea: Negative Group B Streptococcus: Negative Quad Screen Test: Negative (cfDNA) Glucose Tolerance Test: 78 Anatomy Ultrasound Normal Anatomy: No (absent nasal bone, cardiac defect) Other Ultrasounds 4000 Vaginal Examination Dilation: 5 cm Effacement: 50% Station: -3 Cervical Consistency: Medium Cervical Position: Middle Presentation: Cephalic presentation (by US) Assessment Variability: Moderate Accelerations: Positive Decelerations: Late Tocometer Contractions: Yes Frequency: regular Multi-drug resistant Organism: No history of MDRO Assessment/Plan Assessment Ms. Roa is a 35yo at 38+6 presenting in early labor also for CAT II FHR. She was 2cm yesterday and is 5cm today. She has had intermittent late decels, although moderate variability overall reassuring. Plan to admit for labor and augment as indicated. 1. APAS (+lupus anticoagulant), RPL and history of IUFD x2, history of DVT, on lovenox (has not taken in 1wk) 2. balanced translocation 3. overweight, excessive weight gain 4. history of baby with FGR 5. asherman's treated hysteroscopically prior to conception 6. hepatitis B non-immune 7. anxiety/depression with severe marital discord (concerns for safety, police involved) 8. 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 anemia, last H/H 10. advanced maternal age 11. absent nasal bone (normal cfDNA, although FF only 6%), prior child with this as well Rh pos, GBS neg, ceph by US, EFW 4000g Plan - admit for labor, augment with pitocin as indicated - NICU notified of potential complications - CBC on admit for anemia monitoring - plan to continue lovenox PP for 6 weeks - clear liquid diet - ambulate as tolerated - VS/I/O per protocol - counseled on r/b/a of , CD, operative delivery, labor emergencies - anesthesia consulted DUNCAN GARCIA DO Apr 09, 2021 10:09
[2021-04-09 10:18] LABS: HEMATOCRIT 36.2 % (36.0-47.0); HEMOGLOBIN 11.8 g/dl (12.0-15.5); MEAN CORPUSCULAR HGB CONC 32.6 g/dl (32.0-36.5); MEAN CORPUSCULAR VOLUME 88.9 fl (80.0-96.0); PLATELET COUNT, AUTOMATED 199 10^3/uL (150-450); RED BLOOD COUNT 4.07 10^6/uL (4.00-5.40); WHITE BLOOD COUNT 8.2 10^3/uL (4.0-10.0)
[2021-04-09] MEDS ORDERED: OXYTOCIN DRIP 30 UNITS in IV 1 EA IV SCH (11:10)
[2021-04-09] MEDS ORDERED: BUTORPHANOL 2 MG/ML INJ (J0595) IV ONE (14:40)
[2021-04-09] MEDS ORDERED: PROMETHAZINE INJ 25 MG/ML VIAL (J2550) IV ONE (14:40)
--- NOTE | 2021-04-09 16:31 | IPNPDOC ---
Obstetrical Progress Note Date of Service Apr 09, 2021 Subjective To room for report of increased pain. Objective Vital Signs Date Time Temp Pulse Resp B/P (MAP) Pulse Ox O2 Delivery O2 Flow Rate FiO2 04/09/21 14:51 18 04/09/21 14:05 88 118/60 (79) 04/09/21 07:46 97.8 Assessment Variability: Moderate Accelerations: Positive Decelerations: Late, Variable Heart Rate Tracing: Category II Tocometer Contractions: Yes Frequency: regular Sterile Vaginal Examination Dilation: 7 cm Effacement (%): 70% Station: -2 Cervical Consistency: Soft Cervical Position: Middle Postion/Presentation: Cephalic presentation (by exam) Assessment and Plan Status: Reassuring Anticipate: Vaginal Delivery Additional Comments CAT II NST for intermittent variable and late decerations but with good return to baseline and moderate variability. Overall the NST is reassuring and the patient is progressing well towards delivery. SVE was 7/75/-2. AROM was performed, particulate meconium was noted. The patient had stadol and phenergan but is now in active labor and requesting more pain medications. Educated on potential for respiratory depression and offered epidural, patient desires. Will need to wait until 2h after stadol and phenergan per protocol. Will continue to [facility] monitor. DUNCAN GARCIA DO Apr 09, 2021 16:31
[2021-04-09] MEDS ORDERED: FENTANYL 2MCG/ML ROPIVACAINE 0.2% IN 0.9% NACL 100ML IVBAG As Ordered ONE (16:42)
[2021-04-09] MEDS ORDERED: LACTATED RINGER'S 1000 ML IV PRN (17:00)
[2021-04-09] MEDS ORDERED: ePHEDrine SULFATE 25 MG/5 ML(5MG/ML) SYRINGE IV PRN (17:00)
[2021-04-09] MEDS ORDERED: diphenhydrAMINE 50MG/ML VIAL (J1200) IV PRN (17:00)
[2021-04-09] MEDS ORDERED: EPIDURAL COMMENT XX SCH (17:00)
[2021-04-09] MEDS ORDERED: ONDANSETRON 4MG/2ML VIAL IV PRN (17:00)
[2021-04-09] MEDS ORDERED: EPIDURAL/PCA KEYS XX PRN (17:00)
[2021-04-09] MEDS ORDERED: NALOXONE INJ 0.4MG/1ML VIAL (J2310 PER 1MG) IV PRN (17:00)
[2021-04-09] MEDS ORDERED: REFRIGERATOR IV KEYS XX PRN (17:00)
[2021-04-09] MEDS ORDERED: FENTANYL/ROPIVACAINE/NACL BAG 100 ML EPIDURAL SCH (17:00)
[2021-04-09] MEDS ORDERED: ePHEDrine SULFATE 25 MG/5 ML(5MG/ML) SYRINGE As Ordered ONE (18:04)
[2021-04-09 19:19] LABS: CORD GAS ABE A -6.7; CORD GAS HCO3 A 23.2 MEQ/L; CORD GAS O2 SAT A 68.1 %; CORD GAS PCO2 A 67.1 mmHg; CORD GAS PH A 7.157 UNITS; CORD GAS PO2 A 35.8 mmHg; CORD GAS SBC A 18.5 MEQ/L; CORD GAS TCO2 A 25.3 MEQ/L
[2021-04-09 19:20] LABS: CORD GAS ABE V -6.8; CORD GAS HCO3 V 19.7 MEQ/L; CORD GAS O2 SAT V 76.1 %; CORD GAS PCO2 V 42.6 mmHg; CORD GAS PH V 7.282 UNITS; CORD GAS PO2 V 37.3 mmHg; CORD GAS SBC V 18.6 MEQ/L
[2021-04-09] MEDS ORDERED: ACETAMINOPHEN TAB 650MG DOSE (2X325MG) PO PRN (19:30)
[2021-04-09] MEDS ORDERED: DOCUSATE SODIUM 100MG CAPSULE PO PRN (19:30)
[2021-04-09] MEDS ORDERED: RHOGAM 300 MCG (1500 IU) INJ (J2790) IM SCH (19:30)
[2021-04-09] MEDS ORDERED: IBUPROFEN 600MG TAB PO PRN (19:30)
[2021-04-09] MEDS ORDERED: ACETAMINOPHEN 500 MG TAB PO PRN (19:30)
--- NOTE | 2021-04-09 19:39 | DNPDOC ---
[facility] Delivery Note Delivery Note DATE OF DELIVERY: 04/09/21 PREDELIVERY DIAGNOSIS: 38+6/7 weeks' gestation and labor, antiphospholipid antibody syndrome, augmentation of labor for slowed progress, balanced translocation, overweight, excessive weight gain, asherman's syndrome, aneurysmal atrical septal tissue associated with foramen ovale flap, anemia, advanced maternal age, absent nasal bone POST DELIVERY DIAGNOSIS: Delivered. Same as above. Meconium. PROCEDURE: Spontaneous vaginal delivery MANAGER INDUSTRIAL: Dr. Jamie Garcia DO ANESTHESIA: none. ESTIMATED BLOOD LOSS: 100 mL. FINDINGS: 3680g, Score 8/9, nuchal cord times 2 loose. DELIVERY SUMMARY: Ms. Roa is a 35yo who presented in early labor at 38+6. She has a complicated medical and obstetrical history per above. She required augmentation with pitocin. She progressed to C/C/+3 and with good maternal effort the head delivered followed by the corpus without difficulty. A loose nuchal cord x2 was reduced at the perineum. The cord clamping was not delayed as tone was good but there was no cry and the meconium was thick. The cord was clamped x2 and cut and the baby transitioned to the pediatric team. The baby subsequently had good cry. The cord gasses and blood were obtained. The placenta was delivered with payal downward traction and was noted to be in-tact. There were no lacerations. The clots were cleared from the lower uterine segment. The uterus was firm and bleeding was scant. The sponge, lap and needle counts were correct x2. There were no complications. JAMIE GARCIA DO Apr 09, 2021 19:39
[2021-04-10] MEDS: IBUPROFEN 800 MG TAB PO PRN ×2 (03:13→15:50)
[2021-04-10 06:00] VITALS: BP 109/55
--- NOTE | 2021-04-10 09:02 | IPNPDOC ---
Progress Note Date of Service: Apr 10, 2021 Day#: 1 Progress Note Ms. Roa is a 35yo PPD1 s/p after augmentation of labor at 38 weeks after presenting in early labor with a CAT II FHR. She has been ambulating, voiding spontaneously without issue and tolerating regular diet. Breast feeding without issue. Reports lochia is like a normal period. Patient is ambulating well. Reports some cramping with . Denies any pain. Voiding and stooling without difficulty. APC 1. APAS (+lupus anticoagulant), RPL and history of IUFD x2, history of DVT, on lovenox (has not taken in 1wk) 2. balanced translocation CH 3. overweight, excessive weight gain 4. history of baby with FGR 5. asherman's treated hysteroscopically prior to conception 6. hepatitis B non-immune 7. anxiety/depression with severe marital discord (concerns for safety, police involved) 8. 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 anemia, last H/H 10. advanced maternal age 11. absent nasal bone (normal cfDNA, although FF only 6%), prior child with this as well OBJECTIVE: VITAL SIGNS: Within normal limits, afebrile. Alert and oriented times three. No increased WOB. Heart rate: non-tachycardic Abdomen: Fundus firm at U-2. Soft, NTTP. Minimal lochia. LE without tenderness or clonus ASSESSMENT: Ms. Roa is a 35yo PPD1 s/p after augmentation of labor at 38 weeks after presenting in early labor with a CAT II FHR. Vitals within normal limits, afebrile, hemodynamically stable with no evidence of infection. PLAN: 1. Discharge to home likely tomorrow. 2. Tylenol and Motrin for pain. 3. Encourage breast feeding and ambulation. 4. Undecided on contraception 5. Routine PP visit in 2 and 6 weeks in clinic. 6. Discussed return precautions at length to include activity limitations (pelvic rest) VS, I&O, 24H, Fishbone Vital Signs/I&O Vital Signs Date Time Temp Pulse Resp B/P (MAP) Pulse Ox O2 Delivery O2 Flow Rate FiO2 04/10/21 06:00 98.4 74 18 109/55 (73) 04/09/21 22:00 99 Room Air I&O- Last 24 Hours up to 6 AM 04/10/21 06:00 Intake Total 3279 ml Output Total 1300 ml Balance 1979 ml Laboratory Data 24H LABS Laboratory Tests 2 04/09/21 09:17: Serology Scanned Report Hepatitis B Testing 04/09/21 10:00: Nucleated Red Blood Cells % (auto) 0.0 04/09/21 19:02: Cord Arterial Blood pH 7.157, Cord Arterial Blood PCO2 67.1, Cord Arterial Blood PO2 35.8, Cord Arterial Blood HCO3 23.2, Cord Arterial Blood Total CO2 25.3, Cord Arterial Blood Base Excess -6.7, Cord Arterial Base Excess (Standard 18.5, Cord Arterial Bld Oxygen Saturation 68.1, Cord Venous Blood pH 7.282, Cord Venous Blood PCO2 42.6, Cord Venous Blood PO2 37.3, Cord Venous Blood HCO3 19.7, Cord Venous Blood Total CO2 21.0, Cord Venous Base Excess (Actual) -6.8, Cord Venous Base Excess (Standard) 18.6, Cord Venous Blood Oxygen Saturation 76.1 CBC/BMP Laboratory Tests 04/09/21 10:00 DUNCAN GARCIA DO Apr 10, 2021 09:02
[2021-04-10] MEDS: PRENATAL VITAMINS CHEWABLE TABLET PO SCH (09:08)
[2021-04-10] MEDS: ENOXAPARIN 40MG/0.4ML SYRINGE (J1650 PER 10MG) SC SCH (09:09)
[2021-04-10 17:51] VITALS: BP 119/56
[2021-04-11] MEDS: IBUPROFEN 800 MG TAB PO PRN (04:27)
[2021-04-11 06:00] VITALS: BP 109/65
--- NOTE | 2021-04-11 07:08 | IPNPDOC ---
Progress Note Date of Service: Apr 11, 2021 Day#: 2 Progress Note Ms. Roa is a 35yo PPD2 s/p after augmentation of labor at 38 weeks after presenting in early labor with a CAT II FHR. She has been ambulating, voiding spontaneously without issue and tolerating regular diet. Breast feeding without issue. Reports lochia is like a normal period. Patient is ambulating well. Reports some cramping with . Denies any pain. Voiding and stooling without difficulty. APC 1. APAS (+lupus anticoagulant), RPL and history of IUFD x2, history of DVT, on lovenox (has not taken in 1wk) 2. balanced translocation CH 3. overweight, excessive weight gain 4. history of baby with FGR 5. asherman's treated hysteroscopically prior to conception 6. hepatitis B non-immune 7. anxiety/depression with severe marital discord (concerns for safety, police involved) 8. 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 anemia, last H/H 10. advanced maternal age 11. absent nasal bone (normal cfDNA, although FF only 6%), prior child with this as well OBJECTIVE: VITAL SIGNS: Within normal limits, afebrile. Alert and oriented times three. No increased WOB. Heart rate: non-tachycardic Abdomen: Fundus firm at U-2. Soft, NTTP. Minimal lochia. LE without tenderness or clonus ASSESSMENT: Ms. Roa is a 35yo PPD1 s/p after augmentation of labor at 38 weeks after presenting in early labor with a CAT II FHR. Vitals within normal limits, afebrile, hemodynamically stable with no evidence of infection. PLAN: 1. Discharge to home today 2. Tylenol and Motrin for pain. 3. Encourage breast feeding and ambulation. 4. Undecided on contraception, declined at this time 5. Routine PP visit in 2 and 6 weeks in clinic. 6. Discussed return precautions at length to include activity limitations (pelvic rest) 7. Continue lovenox until 6 weeks 8. Recommended hepatitis B vaccination. VS, I&O, 24H, Fishbone Vital Signs/I&O Vital Signs Date Time Temp Pulse Resp B/P (MAP) Pulse Ox O2 Delivery O2 Flow Rate FiO2 04/11/21 06:00 97.1 70 16 109/65 (80) 100 Room Air DUNCAN GARCIA DO Apr 11, 2021 07:08
[2021-04-11] MEDS: ENOXAPARIN 40MG/0.4ML SYRINGE (J1650 PER 10MG) SC SCH (08:37)
[2021-04-11] MEDS: PRENATAL VITAMINS CHEWABLE TABLET PO SCH (08:37)
[2021-04-11 17:21] VITALS: BP 120/58
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
== END 2021-04-11 17:55 | disposition home or self-care (01) | DRG 806 ==
LOC: M LDO 07:31 → M LDI 09:14 → M OBS 21:29
PROVIDERS: ADMIT Obstetrics & Gynecology; ATTEND Obstetrics & Gynecology
PROC: 10E0XZZ Delivery of Products of Conception, External Approach (ICD-10-PCS; principal; 2021-04-09)
PROC: 10907ZC Drainage of Amniotic Fluid, Therapeutic from Products of Conception, Via Natural or Artificial Opening (ICD-10-PCS; 2021-04-09)
DX: O76 Abnormality in fetal heart rate and rhythm complicating labor and delivery (principal); Z37.0 Single live birth; O99.12 Other diseases of the blood and blood-forming organs and certain disorders involving the immune mechanism complicating childbirth; D68.61 Antiphospholipid syndrome; Z3A.38 38 weeks gestation of pregnancy; O77.0 Labor and delivery complicated by meconium in amniotic fluid; O69.81X0 Labor and delivery complicated by cord around neck, without compression, not applicable or unspecified; O99.02 Anemia complicating childbirth; D64.9 Anemia, unspecified

== ENCOUNTER 2021-05-26 09:17 | Emergency (ER) | payer OTHER ==
[~2021-05-26] VITALS: Ht 162.6 cm; Wt 87.7 kg
--- NOTE | 2021-05-26 10:53 | REP ---
INDICATION: R calf pain, ankle swelling, hx prior clot same leg. COMPARISON: None. TECHNIQUE: Right {lower extremity duplex venous scanning is performed from the groin to the ankle level. FINDINGS: The deep veins are anechoic and fully compressible from the groin to the popliteal fossa in the right lower extremity. Color flow imaging is homogeneous. Spectral Doppler interrogation demonstrates intact respiratory variation in flow and normal manual augmentation of flow. There is no evidence of deep vein thrombosis above the knee. In the right lower extremity calf veins could not be seen due to swelling in this patient. Doppler interrogation of the contralateral common femoral vein shows normal symmetric respiratory phasicity. IMPRESSION: No evidence of DVT in the right lower extremity femoropopliteal veins. <Electronically signed by Jamal Malloy > 05/26/21 1860
[2021-05-26 11:05] VITALS: BP 124/81
== END 2021-05-26 11:07 | disposition home or self-care (01) ==
LOC: M ED 09:17
DX: M79.604 Pain in right leg (principal); K21.9 Gastro-esophageal reflux disease without esophagitis; F41.9 Anxiety disorder, unspecified; F33.9 Major depressive disorder, recurrent, unspecified; E73.9 Lactose intolerance, unspecified; Z87.42 Personal history of other diseases of the female genital tract; Z86.718 Personal history of other venous thrombosis and embolism

== ENCOUNTER 2021-09-25 15:21 | Emergency (ER) | payer OTHER ==
[~2021-09-25] VITALS: Ht 167.6 cm; Wt 90.0 kg
[2021-09-25 15:22] VITALS: BP 132/68
[2021-09-25 21:04] LABS: RSV AMPLIFICATION NEGATIVE (NEGATIVE)
== END 2021-09-25 21:48 | disposition home or self-care (01) ==
LOC: M ED 15:21
DX: J06.9 Acute upper respiratory infection, unspecified (principal); B34.8 Other viral infections of unspecified site; E73.9 Lactose intolerance, unspecified